=== PATIENT | female | born 1970 | race African-American/Black ===

== ENCOUNTER 2023-08-14 22:28 | Emergency (ER) | payer SELFPAY ==
[~2023-08-14] VITALS: Ht 180.3 cm; Wt 127.0 kg
[2023-08-14 22:32] VITALS: BP 140/83; PULSE 92; RESP 18; TEMP 98.3; O2SAT 96
== END 2023-08-14 23:02 ==
LOC: ER 22:28
DX: R50.9 Fever, unspecified (principal); I10 Essential (primary) hypertension; Z85.9 Personal history of malignant neoplasm, unspecified
CPT/HCPCS: 99283